=== PATIENT | female | born 1990 | race Caucasian/White ===

== ENCOUNTER 2024-02-07 21:18 | Emergency (ER) | payer OTHER, SELFPAY ==
[2024-02-07 21:23] VITALS: BP 133/86
--- NOTE | 2024-02-07 22:15 | ED.GENMED ---
History of Present Illness
General
Chief Complaint: Oral/Mouth Problem
Source: patient
Exam Limitations: none
Time Seen by Provider: 02/07/24 22:01
Nursing documentation reviewed up to this point in time: agreed with
History of Present Illness
History of Present Illness:
33 female right lower mandible tooth ache posteriorly for a week or so history of the same scared to go to the dentist has an appointment in 2 days visit Ovi had some blood work left with no definitive diagnosis has not been on antibiotics
she is allergic to clinda states her tongue hurts from rubbing up against it difficulty swallowing due to pain
Past History
Past History
ED Past Medical History: Psychiatric (A/D, Bipolar)
Social History
Tobacco: Smoker
Alcohol: None
Drug: None
Living: with family
Employment: Employed
Review of Systems
Review of Systems
All Other Systems: Not applicable
Constitutional: Denies fever or fatigue
EENT: Reports other (Tooth ache); Denies mouth swelling
Phy Exam
Physical Exam
Physical Exam:
Physical Exam
General: no apparent distress, not acutely ill
Neck: Right posterior molar tender inflamed gingival skin mild erythema on the right posterior tongue
Lungs: no acute respiratory distress.
Neuro: alert and oriented. no focal neurological deficits
Skin: no rash
Psychiatric: well kept. interactive and cooperative
Extremities: no edema.
Course
Vital Signs
Initial and Last Documented VS:
Initial Vital Signs
Temp Pulse Resp BP Pulse Ox
98.4 F 104 20 133/86 98
02/07/24 21:23 02/07/24 21:23 02/07/24 21:23 02/07/24 21:23 02/07/24 21:23
Last Documented Vital Signs
Temp Pulse Resp BP Pulse Ox
98.4 F 104 20 133/86 98
02/07/24 21:23 02/07/24 21:23 02/07/24 21:23 02/07/24 21:23 02/07/24 21:23
Procedures
Dentalgia
Dental Block: Infiltration
Bupivacaine 0.5%/Epi Dental cartridge administered?: Yes
Abcess drained?: No
Pt tolerated procedure well w/ no immediate adverse effects?: Yes
Other: Right first molar 2 cc of 1% lidocaine 2/cc of Marcaine
MDM/Problems Addressed
Differential Diagnosis Includes:
Dental carry abscess gingivitis
MDM/Problems Addressed:
Dental pain
*Critical Care Note
Total Time (30-74mins, 75-104mins- exclusive of procedures): Not Applicable
Update Note
Update Note:
Will try to get her comfortable start on antibiotics follow-up dental as scheduled
ED Attending Note
-
Portions of this chart may have been created with voice recognition software.� Occasional wrong word or��sound alike� substitutions may have occurred due to the inherent limitations of voice recognition software.
Discharge Plan
Departure
Patient Disposition: Home (Routine Discharge)
Date of Disposition: 02/07/24
Time of Disposition: 22:33
Patient with high blood pressure during this ER visit?: No
Condition: Good
Discharge Problem:
Pain due to dental caries
Instructions: Tooth Abscess (DC), Dental Pain (DC)
Prescriptions:
New
penicillin V potassium 250 mg tablet
500 mg PO Q6H 7 Days Qty: 56 0RF
ibuprofen 600 mg tablet
600 mg PO Q8H PRN (Reason: Pain) Qty: 20 0RF
No Action
quetiapine 25 MG tablet
25 mg PO HS
valacyclovir [Valtrex] 1,000 MG tablet
600 mg PO PRN (Reason: herpes )
clonazepam 1 MG tablet
1 mg PO TID
dextroamphetamine-amphetamine [Adderall] 20 MG tablet
10 mg PO BID
lamotrigine [Lamictal XR] 200 MG tablet extended release 24hr
200 mg PO DAILY
Activity Restrictions/Additional Instructions:
Antibiotics as prescribed ibuprofen for pain
Follow-up with your dentist as scheduled
Interventions
Interventions:
*Risk Screen - Suicide Last Done: 02/07/24 21:23
*General Assessment Last Done: 02/07/24 21:23
*Neglect/Abuse Screening Last Done: 02/07/24 21:23
ED- Fall Risk Assessment Last Done: 02/07/24 21:23
*ED COVID-19 Vaccine History Last Done: 02/07/24 21:23
Discharge Date and Time
Print Language: PANAMANIAN
[2024-02-07 22:42] VITALS: BP 108/70
== END 2024-02-07 22:47 | disposition home or self-care (01) ==
LOC: EMR 21:18
PROVIDERS: EMERGENCY PHYSICIAN Emergency Medicine; FAMILY PHYSICIAN Nurse Practitioner Primary Care
DX: K02.9 Dental caries, unspecified (principal); F17.200 Nicotine dependence, unspecified, uncomplicated
CPT/HCPCS: 99284; 64400

== ENCOUNTER 2024-04-08 00:57 | Emergency (ER) | payer OTHER, SELFPAY ==
[2024-04-08] VITALS (10 sets, daily range): BP systolic 105–128; BP diastolic 69–93; BMI 28.5
--- NOTE | 2024-04-08 01:45 | ED.GENMED ---
History of Present Illness
General
Chief Complaint: Substance Abuse
Source: patient
Exam Limitations: none
Time Seen by Provider: 04/08/24 01:36
Nursing documentation reviewed up to this point in time: agreed with
History of Present Illness
History of Present Illness:
34-year-old female presents emergency room complaining of depression, and drug use. She is looking for a rehab facility. She called several rehabs and was told to get a psychiatric evaluation. She is with children, but left her family and
states she has been living in the [facility]. She denies SI or HI.
Past History
Past History
ED Past Medical History: Psychiatric (A/D, Bipolar)
ED Past Surgical History: None
Social History
Tobacco: Smoker
Alcohol: None
Drug: Other (Methamphetamines)
Living: with family
Employment: Employed
Review of Systems
Review of Systems
Allergies reviewed?: Yes
All Other Systems: Not applicable
Constitutional: Reports no symptoms
EENT: Reports no symptoms
Respiratory: Reports no symptoms
Cardiac: Reports no symptoms
ABD/GI: Reports no symptoms
: Reports no symptoms
Musculoskeletal: Reports no symptoms
Skin: Reports no symptoms
Neurological: Reports no symptoms
Endocrine: Reports no symptoms
Hematologic/Lymphatic: Reports no symptoms
Psychiatric: Reports depression
Phy Exam
Physical Exam
Physical Exam:
Physical Exam
General: no apparent distress, not acutely ill
Neck: supple. no meningeal signs. normal posterior pharynx
Heart: s1/s2 regular rate and rhythm, no murmur. equal radial
pulses.
HEENT: Pupils equal round reactive to light, EOMI
Lungs: no acute respiratory distress. clear bilaterally
Abdomen: normal bowel sounds. not tender. no CVAT
Neuro: alert and oriented. no focal neurological deficits cranial nerves II through XII intact
Skin: no rash
Psychiatric: well kept. interactive and cooperative
Extremities: no edema. no calf tenderness. negative homans. good distal pulses
Course
Orders/Labs/Results
Orders:
Orders
04/08/24 01:39
Urine Drug Abuse Screen Urgent
Date Specimen was Collected: 04/08/24
Time Specimen was Collected: 01:39
Vital Signs
Initial and Last Documented VS:
Initial Vital Signs
Temp Pulse Resp BP Pulse Ox
98.3 F 98 18 128/86 98
04/08/24 00:59 04/08/24 00:59 04/08/24 00:59 04/08/24 00:59 04/08/24 00:59
Last Documented Vital Signs
Temp Pulse Resp BP Pulse Ox
98.3 F 98 18 128/86 98
04/08/24 00:59 04/08/24 00:59 04/08/24 00:59 04/08/24 00:59 04/08/24 00:59
MDM/Problems Addressed
Differential Diagnosis Includes:
Depression, drug abuse
MDM/Problems Addressed:
34-year-old female with depression, drug abuse. Patient denies SI/HI. Will consult with [facility] and crisis.
*Pulse Oximetry
Patient hypoxic: no
*Critical Care Note
Total Time (30-74mins, 75-104mins- exclusive of procedures): Not Applicable
Patient Management
Social determinants of health affecting care: Living situation and Substance abuse
Discussion with other providers: Acting Teacher (Crisis and [facility])
Escalation/DeEscalation of care consider admission/obs:
Admit not indicated
ED Attending Note
-
Portions of this chart may have been created with voice recognition software.� Occasional wrong word or��sound alike� substitutions may have occurred due to the inherent limitations of voice recognition software.
Discharge Plan
Departure
Patient with high blood pressure during this ER visit?: Yes
Condition: Good
Discharge Problem:
Methamphetamine abuse, Depression
Instructions: Drug Misuse and Addiction (DC), Depression, Adult (DC), BLOOD PRESSURE
Prescriptions:
No Action
quetiapine 25 MG tablet
25 mg PO HS
valacyclovir [Valtrex] 1,000 MG tablet
600 mg PO PRN (Reason: herpes )
clonazepam 1 MG tablet
1 mg PO TID
dextroamphetamine-amphetamine [Adderall] 20 MG tablet
10 mg PO BID
lamotrigine [Lamictal XR] 200 MG tablet extended release 24hr
200 mg PO DAILY
penicillin V potassium 250 mg tablet
500 mg PO Q6H 7 Days Qty: 56 0RF
ibuprofen 600 mg tablet
600 mg PO Q8H PRN (Reason: Pain) Qty: 20 0RF
Referrals:
PRIVATE,PHYSICIAN [Family Provider] -
Interventions
Interventions:
*Risk Screen - Suicide Last Done: 04/08/24 00:59
*General Assessment Last Done: 04/08/24 00:59
*Neglect/Abuse Screening Last Done: 04/08/24 00:59
ED-Psychological Assessment Last Done: 04/08/24 01:39
Discharge Date and Time
Print Language: ALBANIAN
[2024-04-08 02:00] LABS: Amphetamines Positive (Negative); Barbiturates Negative (Negative); Benzodiazepines Negative (Negative); Buprenorphine Negative (Negative); Cocaine Negative (Negative); Marijuana Positive (Negative); Methadone Negative (Negative); Methamphetamines Positive (Negative); Opiates Negative (Negative); Phencyclidine Negative (Negative); Tricyclic Antidepressants Negative (Negative)
[2024-04-08 02:06] LABS: HCG, Urine Qualitative Screen Negative
[2024-04-08 02:12] LABS: Fentanyl, Urine Negative (Negative)
[2024-04-08] MEDS: TYLENOL 650 MG PO (03:40)
[2024-04-08] MEDS: LAMICTAL 200 MG PO (08:55)
[2024-04-08] MEDS: KLONOPIN 1 MG PO (08:55)
[2024-04-08] MEDS: ESKALITH REGULAR RELEASE 300 MG PO (08:55)
== END 2024-04-08 10:26 ==
LOC: EMR 00:57
PROVIDERS: EMERGENCY PHYSICIAN Emergency Medicine
DX: F31.9 Bipolar disorder, unspecified (principal); F15.10 Other stimulant abuse, uncomplicated; F17.200 Nicotine dependence, unspecified, uncomplicated
CPT/HCPCS: 99283; 80306; 80307; 81025